=== PATIENT | male | born 1995 | race Caucasian/White ===

== ENCOUNTER 2020-09-09 01:47 | Inpatient (IN) ==
--- NOTE | 2020-09-09 02:22 | Emergency Department Note ---
History of Present Illness General Chief complaint: Mental Health Evaluation Stated complaint: MENTAL HEALTH Time Seen by Provider: 09/09/20 02:01 Source: patient Mode of arrival: other Limitations: no limitations History of Present Illness Provider complaint: Mental health evaluation This is a 24-year-old male presents emergency department for mental health evaluation with police. Patient states he was recently instructed to discontinue all of his medications. Patient does see outpatient mental health providers due to anxiety and PTSD. Patient states he feels he loses track of time intermittently, and has been under a lot of stress this spring. Patient denies any other concern for injury or illness. Patient states he does see mental health providers regularly. Pt seen during a time of high acuity and national emergency pandemic while wearing PPE. Home Medications Medication Instructions Recorded Confirmed Type fluoxetine 10 mg PO DAILY 09/09/20 09/09/20 History fluoxetine 40 mg PO DAILY 09/09/20 09/09/20 History methylphenidate HCl [Concerta] 36 mg PO DAILY 09/09/20 09/09/20 History prazosin 3 mg PO HS 09/09/20 09/09/20 History Allergies Allergy/AdvReac Type Severity Reaction Status Date / Time No Known Allergies Allergy Unverified 09/09/20 07:03 Past Med/Surg History Medical History (Updated 09/10/20 @ 07:12 by Ree Matson DO) ADHD Depression Generalized anxiety disorder Substance abuse Social History Smoking Status: Current every day smoker Tobacco Type: E-cigarettes / Vaping Preferred Language: Thai Communication Ability: Effective Multisensor Intelligence Officer Required: No Beliefs That Will Affect Care: None Feels Safe at Home: Yes Assistive Devices: None Review of Systems See HPI for pertinent positives & negatives. and A total of 10 systems reviewed and were otherwise negative Physical Exam Vital Signs Vital Signs - 24 hr 09/09/20 01:56 09/09/20 05:45 09/09/20 06:17 Temperature 36.6 C Temperature Source Oral Pulse Rate 107 H Pulse Rate [Finger] 63 Respiratory Rate 14 18 Respiratory Effort / Characteristics Non-Labored Spontaneous Respiratory Depth Normal Blood Pressure 162/97 H Blood Pressure [Right Arm] 137/81 Blood Pressure Mean 118 Blood Pressure Mean [Right Arm] 99 Blood Pressure Position Sitting Pulse Oximetry 100 97 Oxygen Delivery Method Room Air Room Air Sepsis Recent Fever Within 48 Hours No Sepsis New/Unexplained Change in Mental Status N/A Sepsis Action Taken by Nursing No Action Required GENERAL: alert, anxious appearing, well nourished, no distress, non-toxic EYE EXAM: normal conjunctiva, PERRL and EOM's grossly intact OROPHARYNX: no exudate, no erythema, lips, buccal mucosa, and tongue normal and mucous membranes are moist NECK: supple, no nuchal rigidity, no adenopathy, non-tender LUNGS: Clear to auscultation. Normal chest wall mechanics, no w/r/r HEART: no murmurs, S1 normal and S2 normal ABDOMEN: abdomen soft, non-tender, normo-active bowel sounds, no masses, no rebound or guarding. BACK: Back is symmetrical on inspection and there is no deformity, no midline tenderness, no CVA tenderness. SKIN: no rashes and no bruising UPPER EXTREMITIES: upper extremities are grossly normal. FROM, nml pulses b/l. LOWER EXTREMITIES: No pitting edema. FROM, nml pulses b/l. NEURO EXAM: Normal sensorium, cranial nerves II-XII grossly intact, normal speech, no gross weakness of arms, no gross weakness of legs. Gross sensation intact. Course Course 634: Patient was initially seen and evaluated by case management in the emergency room and then referred to [facility]. They did request the patient be given a milligram of Ativan. Following this patient signed voluntary form. Administered Medications Nicotine (Nicotine 21 Mg/24 Hr Tdsy) 21 mg TD QAM CYNTHIA Stop: 10/09/20 14:29 Last Admin: 09/09/20 15:32 Dose: 21 mg Documented by: [id number] Prazosin HCl (Prazosin Hcl 1 Mg Cap) 3 mg PO HS CYNTHIA Stop: 10/09/20 21:59 Last Admin: 09/09/20 20:32 Dose: 3 mg Documented by: [id number] Risperidone (Risperidone 1 Mg Tablet) 1 mg PO Q8H PRN PRN Reason: psychosis Stop: 10/09/20 12:56 Last Admin: 09/09/20 14:24 Dose: 1 mg Documented by: [id number] Discontinued Medications Lorazepam (Lorazepam 1 Mg Tab) 1 mg PO NOW STA Stop: 09/09/20 06:07 Last Admin: 09/09/20 06:20 Dose: 1 mg Documented by: [id number] Medical Decision Making Differential Diagnosis Differential diagnoses considered include mood disorder, infection, hypoglycemia, electrolyte abnormalities, cardiac sources, intracerebral event, toxicologic, neurologic, as well as others. Medical Records Attestation: I reviewed the patient's medical records. Home Medications Current Medication List: was personally reviewed by me Laboratory Data Attestation: I reviewed the patient's lab results. Result diagrams: 09/09/20 02:17 09/09/20 02:17 Lab Results 09/09/20 09/09/20 09/09/20 Range/Units 02:17 02:17 02:17 WBC 5.70 (4.8-10.8) K/uL RBC 5.07 (4.7-6.1) M/uL Hgb 15.2 (14.0-18.0) g/dL Hct 44.7 (42-52) % MCV 88.2 (80-100) fL MCH 30.0 (25-34) pg MCHC 34.0 (32-36) g/dL RDW Std Deviation 39.0 (36.4-46.3) fL RDW Coeff of Gloria 12.3 (11.5-14.5) % Plt Count 302 (130-400) K/uL MPV 11.5 H (7.4-10.4) fL Immature Gran % (Auto) 0.0 % Neut % (Auto) 70.8 % Lymph % (Auto) 15.6 % [place] % (Auto) 12.8 % Eos % (Auto) 0.4 % Baso % (Auto) 0.4 % Neut # (Auto) 4.04 (1.4-6.5) K/uL Lymph # (Auto) 0.89 L (1.2-3.4) K/uL [place] # (Auto) 0.73 H (0.11-0.59) K/uL Eos # (Auto) 0.02 (0-0.5) K/uL Baso # (Auto) 0.02 (0-0.2) K/uL Immature Gran # (Auto) 0.00 (0.00-0.02) K/uL Sodium 139 (136-145) mmol/L Potassium 4.0 (3.5-5.1) mmol/L Chloride 107 (98-107) mmol/L Carbon Dioxide 29 (21-32) mmol/L Anion Gap 3.0 (3-11) BUN 12 (7-18) mg/dl Creatinine 0.93 (0.6-1.4) mg/dl Est Cr Clr Drug Dosing 114.5 ml/min Est GFR ( Amer) 132.7 Est GFR (Non-Af Amer) 114.5 BUN/Creatinine Ratio 12.5 (10-20) Glucose 170 H (70-99) mg/dl Calcium 8.8 (8.5-10.1) mg/dl Total Bilirubin 0.5 (0.2-1) mg/dl AST 8 L (15-37) U/L ALT 24 (12-78) U/L Alkaline Phosphatase 101 (45-117) U/L Total Protein 7.5 (6.4-8.2) gm/dl Albumin 4.1 (3.4-5.0) gm/dl Globulin 3.4 (2.5-4.0) gm/dl Albumin/Globulin Ratio 1.2 (0.9-2) TSH 0.782 (0.300-4.500) uIu/ml Urine Color Urine Appearance (Clear) Urine pH (4.5-7.5) Ur Specific [place] (1.000-1.030) Urine Protein (Negative) Urine Glucose (UA) (Negative) Urine Ketones (Negative) Urine Blood (Negative) Urine Nitrite (Negative) Urine Bilirubin (Negative) Urine Urobilinogen (Negative) Ur Leukocyte Esterase (Negative) Salicylates < 1.7 L (2.8-20) mg/dl Urine Opiates Screen (Neg) Ur Methadone, Qual (Neg) Acetaminophen < 2 L (10-30) ug/ml Urine Barbiturates (Neg) Ur Phencyclidine (PCP) (Neg) U Amphetamin/Meth Scrn (Neg) MDMA (Ecstasy) Screen (Neg) U Benzodiazepines Scrn (Neg) Ur Cocaine Metabolite (Neg) U Marijuana (THC) Screen (Neg) Ethyl Alcohol mg/dL (0-3) mg/dl COVID-19 Eval Order SARS-CoV-2 (PCR) (Negative) Influenza Type A (PCR) (Neg) Influenza Type B (PCR) (Neg) RSV (RT-PCR) (Neg) 09/09/20 09/09/20 09/09/20 Range/Units 02:17 03:30 03:30 WBC (4.8-10.8) K/uL RBC (4.7-6.1) M/uL Hgb (14.0-18.0) g/dL Hct (42-52) % MCV (80-100) fL MCH (25-34) pg MCHC (32-36) g/dL RDW Std Deviation (36.4-46.3) fL RDW Coeff of Gloria (11.5-14.5) % Plt Count (130-400) K/uL MPV (7.4-10.4) fL Immature Gran % (Auto) % Neut % (Auto) % Lymph % (Auto) % [place] % (Auto) % Eos % (Auto) % Baso % (Auto) % Neut # (Auto) (1.4-6.5) K/uL Lymph # (Auto) (1.2-3.4) K/uL [place] # (Auto) (0.11-0.59) K/uL Eos # (Auto) (0-0.5) K/uL Baso # (Auto) (0-0.2) K/uL Immature Gran # (Auto) (0.00-0.02) K/uL Sodium (136-145) mmol/L Potassium (3.5-5.1) mmol/L Chloride (98-107) mmol/L Carbon Dioxide (21-32) mmol/L Anion Gap (3-11) BUN (7-18) mg/dl Creatinine (0.6-1.4) mg/dl Est Cr Clr Drug Dosing ml/min Est GFR ( Amer) Est GFR (Non-Af Amer) BUN/Creatinine Ratio (10-20) Glucose (70-99) mg/dl Calcium (8.5-10.1) mg/dl Total Bilirubin (0.2-1) mg/dl AST (15-37) U/L ALT (12-78) U/L Alkaline Phosphatase (45-117) U/L Total Protein (6.4-8.2) gm/dl Albumin (3.4-5.0) gm/dl Globulin (2.5-4.0) gm/dl Albumin/Globulin Ratio (0.9-2) TSH (0.300-4.500) uIu/ml Urine Color Yellow Urine Appearance Clear (Clear) Urine pH 6.5 (4.5-7.5) Ur Specific [place] 1.027 (1.000-1.030) Urine Protein Negative (Negative) Urine Glucose (UA) Trace H (Negative) Urine Ketones Trace H (Negative) Urine Blood Negative (Negative) Urine Nitrite Negative (Negative) Urine Bilirubin Negative (Negative) Urine Urobilinogen Negative (Negative) Ur Leukocyte Esterase Negative (Negative) Salicylates (2.8-20) mg/dl Urine Opiates Screen Neg (Neg) Ur Methadone, Qual Neg (Neg) Acetaminophen (10-30) ug/ml Urine Barbiturates Neg (Neg) Ur Phencyclidine (PCP) Neg (Neg) U Amphetamin/Meth Scrn Neg (Neg) MDMA (Ecstasy) Screen Neg (Neg) U Benzodiazepines Scrn Neg (Neg) Ur Cocaine Metabolite Neg (Neg) U Marijuana (THC) Screen Pos H (Neg) Ethyl Alcohol mg/dL < 3.0 (0-3) mg/dl COVID-19 Eval Order SARS-CoV-2 (PCR) (Negative) Influenza Type A (PCR) (Neg) Influenza Type B (PCR) (Neg) RSV (RT-PCR) (Neg) 09/09/20 09/09/20 Range/Units 04:41 04:41 WBC (4.8-10.8) K/uL RBC (4.7-6.1) M/uL Hgb (14.0-18.0) g/dL Hct (42-52) % MCV (80-100) fL MCH (25-34) pg MCHC (32-36) g/dL RDW Std Deviation (36.4-46.3) fL RDW Coeff of Gloria (11.5-14.5) % Plt Count (130-400) K/uL MPV (7.4-10.4) fL Immature Gran % (Auto) % Neut % (Auto) % Lymph % (Auto) % [place] % (Auto) % Eos % (Auto) % Baso % (Auto) % Neut # (Auto) (1.4-6.5) K/uL Lymph # (Auto) (1.2-3.4) K/uL [place] # (Auto) (0.11-0.59) K/uL Eos # (Auto) (0-0.5) K/uL Baso # (Auto) (0-0.2) K/uL Immature Gran # (Auto) (0.00-0.02) K/uL Sodium (136-145) mmol/L Potassium (3.5-5.1) mmol/L Chloride (98-107) mmol/L Carbon Dioxide (21-32) mmol/L Anion Gap (3-11) BUN (7-18) mg/dl Creatinine (0.6-1.4) mg/dl Est Cr Clr Drug Dosing ml/min Est GFR ( Amer) Est GFR (Non-Af Amer) BUN/Creatinine Ratio (10-20) Glucose (70-99) mg/dl Calcium (8.5-10.1) mg/dl Total Bilirubin (0.2-1) mg/dl AST (15-37) U/L ALT (12-78) U/L Alkaline Phosphatase (45-117) U/L Total Protein (6.4-8.2) gm/dl Albumin (3.4-5.0) gm/dl Globulin (2.5-4.0) gm/dl Albumin/Globulin Ratio (0.9-2) TSH (0.300-4.500) uIu/ml Urine Color Urine Appearance (Clear) Urine pH (4.5-7.5) Ur Specific [place] (1.000-1.030) Urine Protein (Negative) Urine Glucose (UA) (Negative) Urine Ketones (Negative) Urine Blood (Negative) Urine Nitrite (Negative) Urine Bilirubin (Negative) Urine Urobilinogen (Negative) Ur Leukocyte Esterase (Negative) Salicylates (2.8-20) mg/dl Urine Opiates Screen (Neg) Ur Methadone, Qual (Neg) Acetaminophen (10-30) ug/ml Urine Barbiturates (Neg) Ur Phencyclidine (PCP) (Neg) U Amphetamin/Meth Scrn (Neg) MDMA (Ecstasy) Screen (Neg) U Benzodiazepines Scrn (Neg) Ur Cocaine Metabolite (Neg) U Marijuana (THC) Screen (Neg) Ethyl Alcohol mg/dL (0-3) mg/dl COVID-19 Eval Order CovFluRsv at [facility] SARS-CoV-2 (PCR) NEGATIVE (Negative) Influenza Type A (PCR) Negative (Neg) Influenza Type B (PCR) Negative (Neg) RSV (RT-PCR) Negative (Neg) MDM Narrative This is a 24-year-old male who came in for mental health evaluation. Patient does have a history of PTSD, anxiety and depression. Patient denies any concern for any evolving medical problems or injuries. Labs drawn and sent as a precaution were reassuring. Patient was noted to be hyperglycemic, however no evidence of DKA. This was not a fasting level. Discussed with patient he would need follow-up on a recheck based on this. Patient seen and evaluated by case management here and patient agreement with plan for additional inpatient treatment. Patient signed in voluntarily, was well-appearing and cooperative throughout. Impression & Plan Post traumatic stress disorder (PTSD), Anxiety, Hyperglycemia Discharge Plan Visit Data Chief Complaint: Mental Health Evaluation Stated Complaint: MENTAL HEALTH ED Provider: Ree Matson Discharge Problem: Post traumatic stress disorder (PTSD), Anxiety, Hyperglycemia Patient Disposition: Admitted As Inpatient Discharge Instructions Interventions: ED Discharge Assessment Last Done: 09/09/20 06:43
[2020-09-09 02:29] LABS: Basophils # (auto) 0.02 K/uL (0-0.2); Basophils % (auto) 0.4 %; Eosinophils # (auto) 0.02 K/uL (0-0.5); Eosinophils % (auto) 0.4 %; Hematocrit (blood only) 44.7 % (42-52); Hemoglobin 15.2 g/dL (14.0-18.0); Lymphocytes # (auto) 0.89 K/uL (1.2-3.4); Lymphocytes % (auto) 15.6 %; Mean Corpuscular Volume 88.2 fL (80-100); Mean Platelet Volume 11.5 fL (7.4-10.4); Monocytes # (auto) 0.73 K/uL (0.11-0.59); Monocytes % (auto) 12.8 %; Neutrophils # (auto) 4.04 K/uL (1.4-6.5); Neutrophils % (auto) 70.8 %; Platelet Count 302 K/uL (130-400); RDW Coefficient of Variation 12.3 % (11.5-14.5); Red Blood Count 5.07 M/uL (4.7-6.1)
[2020-09-09 02:49] LABS: Albumin Level 4.1 gm/dl (3.4-5.0); BUN Creatinine Ratio 12.5 (10-20); Calcium 8.8 mg/dl (8.5-10.1); Creatinine Clr Calc Pharmacy 114.5 ml/min; Est GFR (African American) 132.7; Est GFR (Non-African American) 114.5
[2020-09-09 02:53] LABS: Acetaminophen < 2 ug/ml (10-30)
[2020-09-09 02:54] LABS: Salicylate < 1.7 mg/dl (2.8-20)
[2020-09-09 02:59] LABS: Albumin Globulin Ratio 1.2 (0.9-2); Bilirubin,Total 0.5 mg/dl (0.2-1); Globulin 3.4 gm/dl (2.5-4.0); Thyroid Stimulating Hormone 0.782 uIu/ml (0.300-4.500); Total Protein 7.5 gm/dl (6.4-8.2)
[2020-09-09 03:47] LABS: Appearance Urine Clear (Clear); Bilirubin Urine Negative (Negative); Blood Urine Negative (Negative); Color Urine Yellow; Glucose Urine UA Trace (Negative); Ketones Urine Trace (Negative); Leukocyte Esterase Urine Negative (Negative); Nitrite Urine Negative (Negative); Protein Urine Negative (Negative); Specific Gravity Urine 1.027 (1.000-1.030); Urobilinogen Urine Negative (Negative); pH Urine 6.5 (4.5-7.5)
[2020-09-09 04:03] LABS: Amphetamines+Metham, Urine Neg (Neg); Barbiturates, Urine Neg (Neg); Benzodiazepine, Urine Neg (Neg); Cocaine, Urine Neg (Neg); MDMA (Ecstacy), Urine Neg (Neg); Methadone, Urine Neg (Neg); Opiate, Urine Neg (Neg); Phencyclidine, Urine Neg (Neg)
[2020-09-09 05:40] LABS: Influenza A virus by PCR Negative (Neg); Influenza B virus by PCR Negative (Neg); RSV by PCR Negative (Neg); SARS CoV2 RNA(COVID-19) InHosp NEGATIVE (Negative)
[2020-09-09] MEDS ORDERED: LORazepam 1 MG TAB PO STA (06:06)
[2020-09-09] MEDS ORDERED: BISMUTH SUBSALICYLATE LIQD 236 ML PO PRN (06:29)
[2020-09-09] MEDS ORDERED: ACETAMINOPHEN 325 MG TAB PO PRN (06:29)
[2020-09-09] MEDS ORDERED: SODIUM CHLORIDE 0.65% NA SOLN 45 ML (OCEAN) PRN (06:29)
[2020-09-09] MEDS ORDERED: ALUMINUM/MAGNESIUM SUSP 30 ML UDC PO PRN (06:29)
[2020-09-09] MEDS ORDERED: MAGNESIUM HYDROXIDE SUSP 30 ML UDC PO PRN (06:29)
[2020-09-09] MEDS ORDERED: hydrOXYzine HCl 25 MG TAB PO PRN ×2 (06:29)
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
[2020-09-09] MEDS: risperiDONE 1 MG TABLET PO PRN (14:24)
[2020-09-09] MEDS: NICOTINE 21 MG/24 HR TDSY TD SCH (15:32)
[2020-09-09] MEDS: PRAZOSIN HCL 1 MG CAP PO SCH (20:32)
[2020-09-10] MEDS: NICOTINE 21 MG/24 HR TDSY TD SCH (08:29)
--- NOTE | 2020-09-10 12:02 | Psychiatric Progress Note ---
Date of Service September 10, 2020 Impression / Recommendations Impression Complex 24-year-old male, history of ADHD, IRMA, PTSD, MDD, opiate addiction, chronic sleep impairment and caffeine abuse who presents with suicidal ideation and thoughts to jump off his apartment building in the context of inability to sleep and high anxiety. He is now experiencing paranoia and visual hallucinations, which appear to be multifactorial and due to not sleeping for several days at a time, overuse of caffeine, possibly stimulant and SSRIs. He has had multiple medication changes recently, but has had chronic mood and anxiety symptoms, with difficulty functioning since coming to college. Will plan to schedule a family meeting with mother when able to fully participate. Patient treatment is medically necessary due to the severity of symptoms and risk for suicide if discharged. (1) Depression: 09/09 -continue voluntary hospitalization, suicide checks for safety. Continue medically necessary private room due to paranoia, and continue to assess psychotic symptoms including visual hallucinations, which appear to be multifactorial and due to lack of sleep, caffeine abuse, and potential medication overuse. -Encourage group attendance and participation, work on healthy coping skills and discharge safety plan. -Coordinate care with outpatient clinicians at [facility], and with the [place]. -Family meeting with mother in [place]. -Holding fluoxetine as there appears to have been a component of serotonin syndrome, now improving. May resume tomorrow. Offer Ativan as needed in the interim, but advised patient we would not discharge on this given his addiction history, which she is in agreement with. 09/10 - Continue as above, patient does appear to be consolidating but his still very anxious about the events leading to his presentation - Pt does admit "I'm feeling more of my personality coming back." - Reports SI in the very clam bed worker hours, passive wishes (2) Generalized anxiety disorder: 09/09 -as above. Work on behavioral techniques for managing anxiety. We will need to continue to provide education about the need to minimize or even eliminate caffeine and the importance of a healthy sleep schedule. 09/10 - Anxiety is ongoing, at this time it seems to be primarily related to piecing together the events that led to his admission. - Pt is also highly sensitive to caffeine, and would benefit from limiting coffee access - Continue treatment plan as above - risperidone available as needed which patient is finding helpful - continue use at least until symptoms are better stabilized given the psychotic features of his presentation - Will order fasting glucose and lipid panel for tomorrow, in the event that risperidone is continued on a more regular basis (3) Post traumatic stress disorder (PTSD): 09/09 -hold SSRI as above. Continue home dose of prazosin which was just increased to 3 mg at bedtime. (4) ADHD: 09/09 -discontinue Concerta as stimulants have exacerbated his anxiety and he has chronic insomnia with very poor sleep hygiene, going days without sleep in order to complete his assignments. Explore options of decreasing his course work for a more manageable schedule. 09/10 - Reviewed concern that use of stimulant medications (among other factors) may have contributed to patient's presentation. Pt admits he is not interested in resuming stimulant medications. Will encourage appropriate sleep hygiene and establishing healthy routines. (5) Substance abuse: 09/09 -history of opiate addiction, recently using marijuana which may have also contributed to psychosis. Continue to provide education about the risks of substance abuse and recommendations for abstinence. Avoid prescription of controlled substances. Risk Factors Assessment Male: Yes : Yes Do You Have Access To A Gun?: No Mental Health Diagnoses: Yes Substance Use Disorders: Yes Previous Attempt: Yes Previous Psychiatric Hospitalization: Yes Hopelessness: Yes Protective Factors Assessment Moravian Beliefs: No : No Responsible for Young Children: No Employed: No Stable Relationships: No Supportive Family: Yes Good Rapport with Provider: Yes Interval History Identifying Information NOAH HERRERA is a 24-year-old M who currently lives in [place], has a history of PTSD, ADHD, MDD, and IRMA and was admitted on 09/09/20 06:29 on a 201 voluntary commitment for severe anxiety. Chief Complaint "Um, today was going better. But I think it was the extra coffee I had with lunch, I got really anxious all of a sudden." Review of Systems Notes Constitutional: reports feeling "on edge", believes he was stimulated by extra cup of coffee Cardiovascular: denied Respiratory: denied Gastrointestinal: denied Neurological: denied Psychiatric: denies symptoms other than stated above Total of at least 10 systems reviewed, pertinent positives as above and in HPI. Sleep Information Total Hours of Sleep: 10 Sleep Comments: pt awoke x1 ate cereals, crackers, peanut butter, and an apple "I'm hungry". pt on q-15 minute checks Meal Information Percent Meal Consumed - Breakfast: 100 Percent Meal Consumed - Lunch: 90 Percent Meal Consumed - Dinner: 75 Nutrition Comment: Patient sleeping Subjective Subjective Patient was seen & assessed and interval progress reviewed with treatment team. Staff report the patient has admitting to visual and tactile hallucinations yesterday. It is presumed that his presentation was related to a combination of anxiety, sleep depravation, and abuse of stimulants/caffeine in attempts to stay awake and complete assignments. Pt still appearing anxious on the unit and was not yet ready to schedule a support meeting with his mother. Pt was seen today to assess progress since admission. When asked how his day has been, he states "Um, today was going better. But I think it was the extra coffee I had with lunch, I got really anxious all of a sudden." Pt admits that he is planning to limit his caffeine intake to one cup in the morning (reported having a headache earlier that he believed was from caffeine withdrawal). Pt states that he is aware that he should not be using stimulant medications, stating "I think I'm just too sensitive." Pt states that he has been thinking a lot today "trying to put together how I got here." He admits that he was "really f*cking scared" about his behavior and hallucinations when he first presented, and is now worried these symptoms could return. He is pleased to announce that he does fell "my personality is starting to come back." Pt denies SI at time of encou nter, but does admit to waking in the middle of the night with "thoughts of just feeling it'd be better off to be ." Pt reports tolerating a dose of risperidone yesterday and states he is willing to continue the medication as needed, at least until he is stabilized and medications can be re-evaluated. Pt was willing for fasting labs. He denied other needs or concerns today. Physical Exam Psychiatric Orientation: alert, oriented x 3 and cooperative Apperance: appropriately dressed, + disheveled and appeared stated age Long hair, appearing somewhat oily and unkempt. Casually dressed. Eye Contact: good eye contact (though intermittently darting around room or out the window) Motor Behavior: no abnormal motor movements (observed while laying in bed) Speech: normal rate/rhythm/volume of speech Affect: + anxious affect Mood: + depressed mood and + anxious mood Thought Process: goal directed thought process Thought Content: reality based without delusions; no hopelessness and no worthlessness though reports significant concern about presenting symptoms returning Suicidal Thoughts: denies suicidal thoughts (but admits to some passive wishes early this morning) Homicidal Thoughts: denies homicidal thoughts Hallucinations: no auditory hallucinations and no visual hallucinations Cognition: attention grossly intact and language grossly intact Estimated Intelligence: consistent with education level Insight: + fair insight Judgement: + fair judgement Vital Signs (Past 24 Hours) Last Vital Signs Temp 36.7 C 09/10/20 06:45 Pulse 88 09/10/20 06:47 Resp 16 09/10/20 06:45 BP 105/65 09/10/20 06:47 Pulse Ox 97 09/09/20 06:17 Results & Data ([facility]) Current Inpatient Medications Current Inpatient Medications: Current Inpatient Medications Acetaminophen (Acetaminophen 325 Mg Tab) 650 mg PO Q4H PRN PRN Reason: Headache or Minor Fever Stop: 10/09/20 06:28 Al Hydrox/Mg Hydrox/Simethicone (Aluminum/Magnesium Susp 30 Ml Udc) 30 ml PO Q4H PRN PRN Reason: GI Upset Stop: 10/09/20 06:28 Bismuth Subsalicylate (Bismuth Subsalicylate Liqd 236 Ml) 15 ml PO PRN PRN PRN Reason: Loose Stool Stop: 10/09/20 06:28 Hydroxyzine HCl (Hydroxyzine Hcl 25 Mg Tab) 50 mg PO HSZ PRN PRN Reason: Insomnia Stop: 10/09/20 06:28 Hydroxyzine HCl (Hydroxyzine Hcl 25 Mg Tab) 25 mg PO Q4H PRN PRN Reason: Anxiety Stop: 10/09/20 06:28 Magnesium Hydroxide (Magnesium Hydroxide Susp 30 Ml Udc) 30 ml PO DAILY PRN PRN Reason: Constipation Stop: 10/09/20 06:28 Miscellaneous (Remove Nicoderm Patch) 1 ea N/A DAILY@0859 CYNTHIA Stop: 10/10/20 08:58 Last Admin: 09/10/20 08:30 Dose: 1 ea Documented by: Nicotine (Nicotine 21 Mg/24 Hr Tdsy) 21 mg TD QAM CYNTHIA Stop: 10/09/20 14:29 Last Admin: 09/10/20 08:29 Dose: 21 mg Documented by: Prazosin HCl (Prazosin Hcl 1 Mg Cap) 3 mg PO HS CYNTHIA Stop: 10/09/20 21:59 Last Admin: 09/09/20 20:32 Dose: 3 mg Documented by: Risperidone (Risperidone 1 Mg Tablet) 1 mg PO Q8H PRN PRN Reason: psychosis Stop: 10/09/20 12:56 Last Admin: 09/09/20 14:24 Dose: 1 mg Documented by: Sodium Chloride (Sodium Chloride 0.65% Na Soln 45 Ml ([place])) 1 - 2 sprays NA PRN PRN PRN Reason: Nasal Dryness/Congestion Stop: 10/09/20 06:28 Mental Health & Subst Abuse Tx Therapist Name of Therapist: Keysha Rosenbaum Shaker Screen Operator Name of Shaker Screen Operator: None Post Discharge Appointments Primary Care Physician Name Of Family Doctor: [facility]
[2020-09-10] MEDS: PRAZOSIN HCL 1 MG CAP PO SCH (20:54)
[2020-09-11] MEDS: NICOTINE 21 MG/24 HR TDSY TD SCH (08:23)
[2020-09-11 08:36] LABS: Marijuana Quant, GCMS Urine 46 ng/mL (<5)
[2020-09-11 08:47] LABS: Glucose Fasting 91 mg/dl (70-99)
[2020-09-11 08:54] LABS: Chol HDL Ratio 4; Cholesterol 140 mg/dl (0-200); HDL Cholesterol 37 mg/dl; LDL Cholesterol Calculated 85 mg/dl; Triglycerides 89 mg/dl (0-150); VLDL Cholesterol 18 mg/dl
--- NOTE | 2020-09-11 09:40 | Psychiatric Progress Note ---
Date of Service September 11, 2020 Impression / Recommendations Impression Complex 24-year-old male, history of ADHD, IRMA, PTSD, MDD, opiate addiction, chronic sleep impairment and caffeine abuse who presents with suicidal ideation and thoughts to jump off his apartment building in the context of inability to sleep and high anxiety. He is now experiencing paranoia and visual hallucinations, which appear to be multifactorial and due to not sleeping for several days at a time, overuse of caffeine, possibly stimulant and SSRIs. He has had multiple medication changes recently, but has had chronic mood and anxiety symptoms, with difficulty functioning since coming to college. Family meeting with mother was held. Mother is supportive but discussion of past trauma led to acute panic/flashback which patient is processing. Patient treatment is medically necessary due to the severity of symptoms and risk for suicide if discharged. (1) Depression: 09/09 -continue voluntary hospitalization, suicide checks for safety. Continue medically necessary private room due to paranoia, and continue to assess psychotic symptoms including visual hallucinations, which appear to be multifactorial and due to lack of sleep, caffeine abuse, and potential medication overuse. -Encourage group attendance and participation, work on healthy coping skills and discharge safety plan. -Coordinate care with outpatient clinicians at [facility], and with the [place]. -Family meeting with mother in [place]. -Holding fluoxetine as there appears to have been a component of serotonin syndrome, now improving. May resume tomorrow. Offer Ativan as needed in the interim, but advised patient we would not discharge on this given his addiction history, which she is in agreement with. 09/10 - Continue as above, patient does appear to be consolidating but his still very anxious about the events leading to his presentation - Pt does admit "I'm feeling more of my personality coming back." - Reports SI in the very pot liner hours, passive wishes 09/11 - Pt reports his mood overall has been improving - struggles presently are more directly related to anxiety and PTSD - Denies SI (2) Generalized anxiety disorder: 09/09 -as above. Work on behavioral techniques for managing anxiety. We will need to continue to provide education about the need to minimize or even eliminate caffeine and the importance of a healthy sleep schedule. 09/10 - Anxiety is ongoing, at this time it seems to be primarily related to piecing together the events that led to his admission. - Pt is also highly sensitive to caffeine, and would benefit from limiting coffee access - Continue treatment plan as above - risperidone available as needed which patient is finding helpful - continue use at least until symptoms are better stabilized given the psychotic features of his presentation - Will order fasting glucose and lipid panel for tomorrow, in the event that risperidone is continued on a more regular basis 09/11 - Ongoing anxiety, worsened this morning in the context of flashback/panic attack during family meeting with mother. - Will resume low-dose fluoxetine 10mg tomorrow morning, as patient is reporting resolution of symptoms prior to admission which were assumed to be indicative of serotonin syndrome. Can slowly titrate dose as tolerated. - Discussed current usage of as needed risperidone - patient reports feeling a scheduled dose would be helpful as he continues to experience exacerbated anxiety. Will order a scheduled dose of 1mg qHS - keeping as needed doses available. Discussed that this may not necessarily need to be a long-term medication, but does seem appropriate for short-term stabilization - Fasting glucose and lipid panel reviewed - all values WNL (3) Post traumatic stress disorder (PTSD): 09/09 -hold SSRI as above. Continue home dose of prazosin which was just increased to 3 mg at bedtime. 09/11 - Pt experienced a flashback/panic attack during family meeting this morning - assist with processing ways to cope with trauma and manage acute anxiety/flashbacks - We discussed short-term goal of working toward mental health stability that w ould allow for more in-depth trauma work with his outpatient therapist. - Pt encouraged to come to staff with questions or concerns as the flashback/panic attack was reportedly a new experience for him. - Resuming low-dose fluoxetine to target PTSD in addition to mood and generalized anxiety - Continue risperidone for stabilization of acute distress/anxiety until he is stabilized on fluoxetine (4) ADHD: 09/09 -discontinue Concerta as stimulants have exacerbated his anxiety and he has chronic insomnia with very poor sleep hygiene, going days without sleep in order to complete his assignments. Explore options of decreasing his course work for a more manageable schedule. 09/10 - Reviewed concern that use of stimulant medications (among other factors) may have contributed to patient's presentation. Pt admits he is not interested in resuming stimulant medications. Will encourage appropriate sleep hygiene and establishing healthy routines. (5) Substance abuse: 09/09 -history of opiate addiction, recently using marijuana which may have also contributed to psychosis. Continue to provide education about the risks of substance abuse and recommendations for abstinence. Avoid prescription of controlled substances. Risk Factors Assessment Male: Yes : Yes Do You Have Access To A Gun?: No Mental Health Diagnoses: Yes Substance Use Disorders: Yes Previous Attempt: Yes Previous Psychiatric Hospitalization: Yes Hopelessness: Yes Protective Factors Assessment Druze Beliefs: No : No Responsible for Young Children: No Employed: No Stable Relationships: No Supportive Family: Yes Good Rapport with Provider: Yes Interval History Identifying Information NOAH HERRERA is a 24-year-old M who currently lives in [place], has a history of PTSD, ADHD, MDD, and IRMA and was admitted on 09/09/20 06:29 on a 201 voluntary commitment for severe anxiety. Chief Complaint "I'm just exhausted. Like I've been doing some sort of intense exercising." Review of Systems Notes Constitutional: reports "I'm just exhausted now" Cardiovascular: denied Respiratory: denied Gastrointestinal: denied Neurological: denied Psychiatric: denies symptoms other than stated above Total of at least 10 systems reviewed, pertinent positives as above and in HPI. Sleep Information Total Hours of Sleep: 8.5 Sleep Comments: pt awoke x1 ate cereals, crackers, peanut butter, and an apple "I'm hungry". pt on q-15 minute checks Meal Information Percent Meal Consumed - Breakfast: 100 Percent Meal Consumed - Lunch: 100 Percent Meal Consumed - Dinner: 100 Nutrition Comment: per meal record Subjective Subjective Patient was seen & assessed and interval progress reviewed with nursing and social work. Staff report the patient has been participating actively with groups and has been supportive of peers. He reports ongoing anxiety, specifically anxiety about the recurrence of hallucinations or other concerning symptoms he was experiencing at time of admission. Pt had a family meeting this morning with his mother via Zoom. It was reported by staff that patient experienced a flashback/panic attack while discussing some of his trauma history, which led to significant anxiety and request for prn risperidone. Pt was seen after this meeting to assess progress since admission. Pt states he is feeling "much better" than he was, but that anxiety remain high. Pt admitted he is struggling with the idea that "something that happened so long ago is still affecting me so much." Education was provided about trauma and how the effects of these situations can vary. He describes his experience as "shooting off in a space ship but having no idea what direction you are being taken." He states he recalls staring out the window, but felt as though he was "also in another place entirely." Pt continues to find prn risperidone helpful for acute anxiety, and he agreed to a scheduled dose at HS - at least until he can be resumed on a sufficient dose of his fluoxetine. Pt agreed to restarting low-dose fluoxetine tomorrow as well, as he is now denying symptoms of serotonin toxicity. We reviewed that the short-term goal on our unit would be for acute stability and development of healthy ways to cope with anxiety (or other events like this morning). Pt was reminded that the more in-depth work would likely come from processing this trauma with his outpatient therapist when he is feeling more stable to do so. Pt verbalized concern as he admitted he associated risperidone with "schizophrenia." We discussed the many uses of antipsychotic medications for acute stabilization and working diagnoses were clarified. Pt denies SI, but admits he does not feel he would be able to confidently manage the extreme anxiety he has been experiencing. Pt denied other needs or concerns today. Physical Exam Psychiatric Orientation: alert and oriented x 3 Apperance: appropriately dressed, appropriately groomed and appeared stated age Has long hair and vieyra, but level of hygiene is adequate. Eye Contact: good eye contact Motor Behavior: steady gait and station and no abnormal motor movements Speech: normal rate/rhythm/volume of speech Affect: + blunted affect (appearing subdued, fatigued) Mood: + anxious mood (but reports significant improvement after taking risperidone) Describes himself as "exhausted" Thought Process: goal directed thought process articulating his thoughts well, though he admits he is trying to "piece everything together" Thought Content: reality based without delusions; no hopelessness Suicidal Thoughts: denies suicidal thoughts and denies suicidal intent Homicidal Thoughts: denies homicidal thoughts Hallucinations: no auditory hallucinations and no visual hallucinations Cognition: attention grossly intact and language grossly intact Estimated Intelligence: consistent with education level Insight: + fair insight Judgement: + fair judgement Vital Signs (Past 24 Hours) Last Vital Signs Temp 36.8 C 09/11/20 06:00 Pulse 111 H 09/11/20 06:47 Resp 15 09/11/20 06:00 BP 148/82 H 09/11/20 06:47 Pulse Ox 97 09/09/20 06:17 Results & Data ([facility]) Laboratory Results Laboratory Results - last 24 hr 09/09/20 09/11/20 03:30 08:14 Fasting Glucose 91 Triglycerides 89 Cholesterol 140 LDL Cholesterol, Calc 85 VLDL Cholesterol, Calc 18 HDL Cholesterol 37 Cholesterol/HDL Ratio 4 U Marijuana THC Carboxy 46 H Drug Screen Comment SEE NOTE Current Inpatient Medications Current Inpatient Medications: Current Inpatient Medications Acetaminophen (Acetaminophen 325 Mg Tab) 650 mg PO Q4H PRN PRN Reason: Headache or Minor Fever Stop: 10/09/20 06:28 Al Hydrox/Mg Hydrox/Simethicone (Aluminum/Magnesium Susp 30 Ml Udc) 30 ml PO Q4H PRN PRN Reason: GI Upset Stop: 10/09/20 06:28 Bismuth Subsalicylate (Bismuth Subsalicylate Liqd 236 Ml) 15 ml PO PRN PRN PRN Reason: Loose Stool Stop: 10/09/20 06:28 Hydroxyzine HCl (Hydroxyzine Hcl 25 Mg Tab) 50 mg PO HSZ PRN PRN Reason: Insomnia Stop: 10/09/20 06:28 Hydroxyzine HCl (Hydroxyzine Hcl 25 Mg Tab) 25 mg PO Q4H PRN PRN Reason: Anxiety Stop: 10/09/20 06:28 Last Admin: 09/10/20 14:29 Dose: 25 mg Documented by: Magnesium Hydroxide (Magnesium Hydroxide Susp 30 Ml Udc) 30 ml PO DAILY PRN PRN Reason: Constipation Stop: 10/09/20 06:28 Miscellaneous (Remove Nicoderm Patch) 1 ea N/A DAILY@0859 REPLACED BY [facility] Stop: 10/10/20 08:58 Last Admin: 09/11/20 08:27 Dose: 1 ea Documented by: Nicotine (Nicotine 21 Mg/24 Hr Tdsy) 21 mg TD QAM REPLACED BY [facility] Stop: 10/09/20 14:29 Last Admin: 09/11/20 08:23 Dose: 21 mg Documented by: Prazosin HCl (Prazosin Hcl 1 Mg Cap) 3 mg PO HS CYNTHIA Stop: 10/09/20 21:59 Last Admin: 09/10/20 20:54 Dose: 3 mg Documented by: Risperidone (Risperidone 1 Mg Tablet) 1 mg PO Q8H PRN PRN Reason: psychosis Stop: 10/09/20 12:56 Last Admin: 09/09/20 14:24 Dose: 1 mg Documented by: Sodium Chloride (Sodium Chloride 0.65% Na Soln 45 Ml ([place])) 1 - 2 sprays NA PRN PRN PRN Reason: Nasal Dryness/Congestion Stop: 10/09/20 06:28 Mental Health & Subst Abuse Tx Psychiatrist Name of Psychiatrist: Crysalin Jolie Yates PA-C Psychiatrist's Date of Appointment with Psychiatrist: 09/16/20 Time of Appointment with Psychiatrist: 4:20 p.m. Psychiatric Appointment Comment: Telehealth Therapist Name of Therapist: Crysalin Jolie Rosenbaum Therapist's Date of Therapist Appointment: 09/19/20 Therapy Appointment Comment: Telehealth Safety Deposit Boxes Custodian Name of Safety Deposit Boxes Custodian: [employer] Phone Number for Safety Deposit Boxes Custodian: [phone] Case Management Appointment Comment: Will contact you via phone call Post Discharge Appointments Primary Care Physician Name Of Family Doctor: [facility] Primary [facility] Time of Appointment with PCP: Follow up as needed Provider Appointment Comment: [facility] Contact Information Discharge Discharge Address: [address] [place] [address], [address] [facility], [place] [address]
[2020-09-11] MEDS: risperiDONE 1 MG TABLET PO PRN (10:44)
[2020-09-11] MEDS: risperiDONE 1 MG TABLET PO SCH (20:29)
[2020-09-11] MEDS: PRAZOSIN HCL 1 MG CAP PO SCH (20:29)
[2020-09-12] MEDS: NICOTINE 21 MG/24 HR TDSY TD SCH (08:40)
[2020-09-12] MEDS: FLUoxetine HCL 10 MG CAP PO SCH (08:41)
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
[2020-09-12] MEDS: PRAZOSIN HCL 1 MG CAP PO SCH (21:26)
[2020-09-12] MEDS: risperiDONE 1 MG TABLET PO SCH (21:27)
[2020-09-13] MEDS: FLUoxetine HCL 10 MG CAP PO SCH (08:34)
[2020-09-13] MEDS: NICOTINE 21 MG/24 HR TDSY TD SCH (08:46)
--- NOTE | 2020-09-13 09:16 | Discharge Summary ---
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 abuse and recommendations for abstinence. Avoid prescription of controlled substances. 09/12 -Of note is the fact that when I discussed rescue pharmacologic interventions for panic attacks, the patient quickly informed me that he is in recovery following a history of opioid addiction and is aware that benzodiazepines have the potential to trigger opioid relapses. Accordingly, he said that he "absolutely" would not consider taking any benzodiazepine. -The patient has several years of abstinence under his [facility] Psychiatrist's Date of Appointment with Psychiatrist: 09/16/20 Time of Appointment with Psychiatrist: 4:20 p.m. Psychiatric Appointment Comment: Telehealth Therapist Name of Therapist: [facility] Jolie Rosenbaum Therapist's Date of Therapist Appointment: 09/19/20 Time of Therapist Appointment: 1:00 p.m. Therapy Appointment Comment: Telehealth Associate Chemist Name of Associate Chemist: [facility] Molly Recio Phone Number for Associate Chemist: [phone] Date of Appointment with Associate Chemist: 09/17/20 Time of Appointment with Associate Chemist: 3:30 p.m. Case Management Appointment Comment: Will contact you via phone call Post Discharge Appointments Primary Care Physician Name Of Family Doctor: [facility] Time of Appointment with PCP: Follow up as needed Provider Appointment Comment: [facility] Smoking Cessation Counseling Tobacco Cessation Medication Prescribed at Discharge: Offered & Prescribed Contact Information Discharge Discharge Address: [address] [place] [address], [address] [facility] [place], [place] [address] Discharge Plan Discharge Items Patient Disposition: Home - Home Health Services Reason For Visit: PTSD Discharge Diagnosis: - PTSD - Depression - Generalized anxiety disorder - ADHD - History of substance abuse Condition on Discharge: Fair Activity: Resume your previous activity Non-emergency contact: Primary Care Provider, Psychiatrist and Therapist Call non-emergency contact if: you have any medication questions and your symp toms worsen Follow-up/Referrals: [place] [Primary Care Provider] - Diet: Regular Addtl Attending Provider Instructions: SPECIAL CARE INSTRUCTIONS: 1. Follow through with your scheduled aftercare appointments. If unable to keep an appointment, please call to reschedule. 2. Take your medication only as prescribed. Medication should not be changed or stopped without the approval of your doctor. In the event of worsening symptoms or concerns about side effects, contact your doctor immediately. 3. Utilize new healthy coping skills, anger management skills, and stress management skills learned during your hospitalization. Journal feelings and process them with a support person. Identify stressors or situations that may result in relapse, deterioration or inappropriate behaviors and develop a plan to deal with those issues. 4. If your coping skills are ineffective and you are in crisis, contact your outpatient providers for direction. If unable to reach your providers, please call the [facility] CRISIS LINE AT , go to the [facility] walk-in center at [address] [facility], or go to the closest Emergency Room. 5. Avoid alcohol and un-prescribed drugs. 6. You have been provided with the Mental Health Advance Directives Pamphlet for your review. AFTERCARE APPOINTMENTS: * Please call your insurance company prior to your scheduled appointment to confirm your aftercare providers are covered. Take your insurance information to your appointments. WHO TO CALL AND WHEN: Medical Emergencies: For questions or emergencies related to your hospital stay, please contact the Inpatient Behavioral Health Unit at [phone]. A access clinician is on-call 27/12 for the Behavioral Health Unit for emergencies At any time you feel your situation is an emergency, you may also call 911 immediately. Pending Studies at Discharge: No Stand-Alone Forms: My [employer], Smoking Cessation Medications and DC Order Prescriptions: New fluoxetine 10 mg Capsule 10 mg PO QAM 30 Days Qty: 30 RF: 0 risperidone 1 mg Tablet 1 mg PO HS 30 Days Qty: 30 RF: 0 nicotine [Nicoderm CQ] 21 mg/24 hr Patch 24 Hour 21 mg transdermal QAM Qty: 28 RF: 0 Continued prazosin 1 mg capsule 3 mg PO HS RF: 0 Discontinued fluoxetine 40 mg capsule 40 mg PO DAILY RF: 0 fluoxetine 10 mg capsule 10 mg PO DAILY RF: 0 methylphenidate HCl [Concerta] 36 mg Tablet Extended Release 24hr 36 mg PO DAILY RF: 0 Discharge Orders: Discharge Order (Routine); Ordered 09/13/20 Ordered By: Antionette Fabian Admission Data Admit Date/Time: 09/09/20 06:29 Attending Provider: Marci Santiago Admit Provider: Christina Calderon Primary Care Provider: [facility] Other Interventions: Discharge Summary Assessment (RN) Last Done: 09/13/20 10:42 PSY Interdisciplinary Discharge Planning Last Done: 09/13/20 10:41 Coding Level of Care Code 94724 D/C day mgmt > 30 min Diagnoses Depression F32.9 Generalized anxiety disorder F41.1 Post traumatic stress disorder (PTSD) F43.10 ADHD F90.9 Substance abuse F19.10
== END 2020-09-13 13:14 | disposition home or self-care (01) | DRG 882 ==
LOC: ED 01:47 → 3S 06:29